=== PATIENT | male | born 1960 | race Caucasian/White ===

== ENCOUNTER → 2016-09-17 | Outpatient (CLI) | payer OTHER ==
[~2016-09-17] MED LIST: IOPAMIDOL (ISOVUE-300) 100 ML BTL ONE
== END ==
LOC: FIMAGING 16:06
PROVIDERS: ATTEND Physician Assistant Medical
DX: Z12.89 Encounter for screening for malignant neoplasm of other sites (principal); C61 Malignant neoplasm of prostate
CPT/HCPCS: Q9967

== ENCOUNTER → 2016-09-18 | Outpatient (CLI) | payer OTHER | LOC: FIMAGING 08:46 | PROVIDERS: ATTEND Specialist | DX: Z12.89 Encounter for screening for malignant neoplasm of other sites (principal); C61 Malignant neoplasm of prostate | CPT/HCPCS: 78306; A9503 ==

== ENCOUNTER 2016-10-24 05:56 | Inpatient (IN) | payer OTHER ==
[2016-10-24] MEDS ORDERED: LR 1,000 ML IV ONE (06:21)
[2016-10-24] MEDS ORDERED: LIDOCAINE 1% 2 ML INJ ID PRN (06:21)
--- NOTE | 2016-10-24 06:51 | PDANEPAE ---
ANE History of Present Illness presents for radical prostatectomy 2/2 prostate cancer ANE Past Medical History - Cardiovascular History Hx Hypertension: Yes Hx Arrhythmias: No Hx Chest Pain: No Hx Coronary Artery / Peripheral Vascular Disease: No Hx CHF / Valvular Disease: No Hx Palpitations: No - Pulmonary History Hx COPD: No Hx Asthma/Reactive Airway Disease: No Hx Recent Upper Respiratory Infection: No Hx Oxygen in Use at Home: No - Neurologic History Hx Cerebrovascular Accident: No Hx Seizures: No Hx Dementia: No - Endocrine History Hx Diabetes: No - Renal History Hx Renal Disorders: No - Liver History Hx Hepatic Disorders: No - Neurological & Psychiatric Hx Hx Neurological and Psychiatric Disorders: No - Cancer History Hx Cancer: Yes - Congenital Disorder History Hx Congenital Disorders: No - GI History Hx Gastrointestinal Disorders: No - Chronic Pain History Chronic Pain: No ANE Review of Systems - Exercise capacity METS (RN): 5 METS ANE Patient History - Allergies Allergies/Adverse Reactions: No Known Allergies Allergy (Unverified 10/21/16 11:41) - Home Medications Home Medications: Lisinopril/Hctz 20/12.5MG [Zestoretic/Prinzide 20/12.5MG (*)] 1 ea PO DAILY [Last Taken Unknown] Tadalafil [Cialis] 5 mg PO DAILY PRN 10/18/16 [Last Taken Unknown] - NPO status NPO Since - Liquids (Date): 10/23/16 NPO Since - Liquids (Time): 21:00 NPO Since - Solids (Date): 10/23/16 NPO Since - Solids (Time): 11:00 - Anes Hx Anes Hx: no prior problems - Smoking Hx Smoking Status: Former smoker - Alcohol Use Alcohol Use: Other (3 drinks/day) - Family Anes Hx Family Hx Anesthesia Complications: NEG ANE Labs/Vital Signs - Vital Signs Blood Pressure: 128/85 Heart Rate: 85 Respiratory Rate: 15 O2 Sat (%): 94 Height: 175.26 cm Weight: 89.811 kg ANE Physical Exam - Airway Neck exam: FROM Mallampati Score: Class 1 Mouth exam: normal dental/mouth exam - Pulmonary Pulmonary: no respiratory distress - Cardiovascular Cardiovascular: no murmur, rub, or gallop - ASA Status ASA Status: II ANE Anesthesia Plan Anesthesia Plan: general endotracheal anesthesia
[2016-10-24] MEDS ORDERED: MIDAZOLAM 2 MG/2 ML VIAL IVP ONE ×2 (06:54→07:15)
[2016-10-24] MEDS ORDERED: fentaNYL 100 MCG/2 ML INJ ONE ×5 (06:59→11:34)
[2016-10-24] MEDS ORDERED: PROPOFOL 200 MG/20 ML VIAL ONE ×2 (06:59)
[2016-10-24] MEDS ORDERED: cefOXitin SODIUM 2 GM in D5W 100 ML IV ONE (07:00)
[2016-10-24] MEDS ORDERED: MIDAZOLAM 2 MG/2 ML VIAL ONE (07:26)
--- NOTE | 2016-10-24 07:29 | PDHPUP ---
History & Physical Update H&P update statement: This history and physical update is based on an assessment of the patient which was completed after admission or registration (within 24 hours), but prior to the surgery/procedure. H&P update: H&P reviewed & patient examined, no change in patient's condition since H&P completed
[2016-10-24] MEDS ORDERED: BUPIVACAINE/EPI 0.5% 30 ML SDV ONE (08:01)
[2016-10-24] MEDS ORDERED: THROMBIN(HUM PLAS)/FIBRINOG/CA 5 ML VIAL TP ONE (09:04)
[2016-10-24] MEDS ORDERED: SUGAMMADEX SODIUM 200 MG/2 ML VIAL IVP ONE (10:25)
--- NOTE | 2016-10-24 11:24 | POSTOPPROG ---
Post Op Note Date of Operation: 10/24/16 Surgeon: Javier Loving (# [id number]) Jackhammer Splitter Operator: SOM Whiteside Anesthesia: GET(General Endotracheal) Pre-op Diagnosis: Prostate CA Post-op Diagnosis: Prostate CA Procedure: Robotic radical prostatectomy + bilateral PLND Findings: See op note Inf/Abcess present in the surg proc area at time of surgery?: No EBL: 100-500 (400 cc) Complications: None Drains: Mynor Newton (10 Flat) Specimen(s): 1. Prostate + SV's 2. Bilateral PLN packages
[2016-10-24] MEDS ORDERED: LIDOCAINE 2% JELLY 5 ML TUBE TP PRN (11:26)
[2016-10-24] MEDS ORDERED: OXYCODONE/APAP 5/325 TAB PO PRN (11:26)
[2016-10-24] MEDS ORDERED: HYDROCODONE/APAP 5/325 TAB PO PRN (11:26)
[2016-10-24] MEDS ORDERED: ALBUTEROL 3 ML DEYVIAL IH PRN (11:26)
[2016-10-24] MEDS ORDERED: ONDANSETRON 4 MG/2 ML VIAL IVP PRN ×2 (11:26)
[2016-10-24] MEDS ORDERED: LABETALOL HCL 50 MG/10 ML SYR IVP PRN (11:26)
[2016-10-24] MEDS ORDERED: LR 500 ML IV PRN (11:26)
[2016-10-24] MEDS ORDERED: PROMETHAZINE HCL 25 MG/ML INJ IVP PRN ×2 (11:26)
[2016-10-24] MEDS ORDERED: ACETAMINOPHEN 500 MG TAB PO PRN (11:26)
[2016-10-24] MEDS ORDERED: NALOXONE HCL 0.4 MG/ML INJ IVP PRN ×2 (11:26)
--- NOTE | 2016-10-24 11:26 | POSTANESTH ---
Post Anesthetic Evaluation Cardiovascular Status: Normal, Stable Respiratory Status: Normal, Stable Level of Consciousness/Mental Status: Can Participate in Eval Pain Control: Adequate, Prn Tx Ordered Nausea/Vomiting Control: Adequate, Prn Tx Ordered Complications Possibly Related to Anesthesia: None Noted
[2016-10-24] MEDS: fentaNYL 100 MCG/2 ML INJ IVP PRN ×2 (11:39→11:47)
[2016-10-24] MEDS ORDERED: HYDROmorphONE/DILAUDID 1 MG/ML SYR ONE (12:00)
[2016-10-24] MEDS: HYDROmorphONE/DILAUDID 1 MG/ML SYR IVP PRN ×3 (12:02→12:22)
[2016-10-24 12:16] LABS: % IMMATURE GRANULYOCYTES 0.8 % (0.0-1.1); ABSOLUTE IMMATURE GRANULOCYTES 0.16 10^3/uL (0.00-0.10); ADD DIFF? NO; ADD MORPH? NO; ADD SCAN? NO; ATYPICAL LYMPHOCYTE FLAG 0 (0-99); FRAGMENT RBC FLAG 0 (0-99); HEMATOCRIT 41.1 % (40.0-51.0); HEMOGLOBIN 14.4 g/dL (13.7-17.5); LEFT SHIFT FLG 10 (0-99); LIPEMIA HEMOLYSIS FLAG 90 (0-99); MEAN CELL HEMOGLOBIN 31.8 pg (27.9-34.1); MEAN CELL VOLUME 90.7 fL (81.5-99.8); MEAN PLATELET VOLUME 10.6 fL (8.7-11.7); PLATELET CLUMPS FLAG 0 (0-99); PLATELET COUNT 249 10^3/uL (150-400); RED BLOOD CELL COUNT 4.53 10^6/uL (4.40-6.38); RED CELL DISTRIBUTION WIDTH 11.9 % (11.5-15.2)
[2016-10-24 12:27] LABS: ANION GAP 9 mEq/L (8-16); CALCIUM 8.8 mg/dL (8.5-10.4); CARBON DIOXIDE 23 mEq/l (22-31); CHLORIDE 104 mEq/L (97-110); GLOMERULAR FILTRATION RATE > 60; GLUCOSE 156 mg/dL (70-100); POTASSIUM 4.3 mEq/L (3.5-5.2); SODIUM 136 mEq/L (134-144)
[2016-10-24] MEDS: HYDROmorphONE/DILAUDID 6 MG/30 ML PCA IV PRN (14:42)
[2016-10-24] MEDS: D5W 1/2 NS 1,000 ML IV SCH ×2 (14:43→22:40)
[2016-10-24] MEDS: cefOXitin SODIUM 2 GM in D5W 100 ML IV SCH ×2 (16:20→22:40)
--- NOTE | 2016-10-24 19:19 | GOP ---
[f rep st] OPERATIVE REPORT DATE OF OPERATION: 10/24/2016 SURGEON: Javier Loving MD OTHER SPATIAL SCIENTIST: Keri Murray CFA. ANESTHESIA: General endotracheal. PREOPERATIVE DIAGNOSIS: Prostate adenocarcinoma. POSTOPERATIVE DIAGNOSIS: Prostate adenocarcinoma. PROCEDURE PERFORMED: Robotically-assisted laparoscopic prostatectomy and bilateral pelvic lymphadenectomy. FINDINGS: Grossly organ-confined prostate cancer with no evidence of metastases. SPECIMENS: 1. Prostate with seminal vesicles. 1. Bilateral pelvic lymph node packages. 2. ESTIMATED BLOOD LOSS: Approximately 400 cc. INDICATIONS: This gentleman was recently diagnosed with a clinically-localized prostate adenocarcinoma. He is here to undergo definitive surgical therapy. The indications for the procedures, as well as potential risks and complications , were discussed with the patient preoperatively. He appeared to understand, his questions were answered, and he wished to proceed. Written informed surgical consent was thereafter obtained. DESCRIPTION OF PROCEDURE: The patient was brought to the operating room and administered general endotracheal anesthesia. He was carefully placed in low lithotomy position with Volodymyr stirrups. The genital area and abdomen were sterilely prepped and draped in standard fashion utilizing Ioban. A 20-Yi Lockhart catheter was placed sterilely on the field to gravity drainage. An orogastric tube was placed by Anesthesia and removed at the conclusion of the case. Intraabdominal access was obtained in the midline just above the umbilicus with a Veress needle. The abdomen was insufflated to 15 mmHg, which was the pressure maintained throughout a majority of the case. A 12 mm laparoscopic port was placed in this location, and proper intraabdominal access was confirmed with a robotic camera. I then marked out my remaining ports sites , which were as follows: An 8 mm robotic port in the left lower quadrant approximately 2.5 cm below the umbilicus and 12 cm lateral to the midline, an 8 mm robotic port in the right lower quadrant 2.5 cm below the midline and 7.5 cm laterally, a 3rd 8 mm robotic port placed approximately 8 cm lateral to the right lower quadrant port and nearly in the same transverse line as the umbilicus, and a 12 mm under water assistant port was placed in the left upper quadrant along the lateral edge of the rectus muscle. All these ports were placed under direct vision without complication. The robot was then docked between the patient's legs, and the appropriate arms were secured to the respective ports. This was done after the patient was placed in 27-degree Trendelenburg position. I then left the patient's bedside and entered the surgeon's robotic console. The 0-degree 12 mm robotic camera was used throughout the case. I began the procedure by carefully mobilizing some adhesions in the left lower quadrant between the small bowel and the posterior peritoneum overlying the iliac vessels. These adhesions were likely present as a result of the patient's prior orchidopexy on this side. I then identified the prerectal space in the midline. A midline transverse incision was made through the posterior peritoneum approximately 1.5 cm above the rectum with monopolar scissors. Gentle spreading motion of the posterior peritoneum was used until I was able to identify the vas deferens bilaterally. These structures were dissected free from the surrounding tissue carefully with electrocautery. The vas deferens was then transected approximately 2 cm distal to its insertion into the base of the prostate on each side. The seminal vesicles were carefully dissected free from the surrounding tissue on each side. Hem-o-garrick clips were used to ligate the vasculature at the tips of the seminal vesicles bilaterally. Once these were dissected free, an incision was made in a transverse fashion through Denonvilliers fascia just below the base of the prostate in the midline. I then used a gentle spreading motion to dissect the rectum posteriorly from the prostate anteriorly, as far towards the prostatic apex as possible. This completed the posterior dissection, which was hemostatic at this point. I then turned my attention to performing the anterior dissection. The anterior peritoneum was incised with scissors high along the anterior abdominal wall and just lateral to the obliterated umbilical ligaments. These incisions through the anterior peritoneum bilaterally were then carried back in a cephalad fashion toward the vas deferens. A gentle spreading motion was then used to develop the lateral pelvic spaces. The obliterated umbilical ligaments were transected high along the anterior abdominal wall after ligation with bipolar cautery. This allowed entrance into the space of Retzius. The bladder was then was then carefully "dropped." The endopelvic fascia was then incised lateral to the prostate on each side with this incision through the endopelvic pelvic fascia carried cephalad and caudally along the length of the prostate. The underlying levator ani muscles were carefully teased off the prostate with gentle blunt dissection. I then carefully performed the apical dissection in order to isolate the dorsal vein complex. The puboprostatic ligaments were divided with sharp scissors dissection. Two separate 0 Vicryl sutures were then used to ligate the dorsal vein complex, staying above the urethra and distal to the prostatic apex. A slipknot technique was used to secure these sutures in place. I then performed the bladder neck dissection. This was done with monopolar scissors. I carefully developed the plane between the bladder and the prostate base anteriorly. In the midline I was ultimately able to identify the previously dissected seminal vesicles and vas deferens. These were pulled up anteriorly. The posterior dissection of the prostate base from the posterior bladder was then performed with monopolar scissors. It should be mentioned that , by this point, the bladder neck had already been transected. I attempted to spare as much bladder neck tissue as possible while not compromising the margin of dissection at this location. I also was cognizant of the increased Mukesh score in the left base and performed the dissection accordingly in order to obtain a grossly adequate margin on this side. An aggressive, nerve-sparing procedure was performed on both sides. Using cold scissors dissection, I carefully dissected the neurovascular bundles bilaterally off the prostate and out of harm's way before ligating the prostate pedicles on each side. The pedicles were then ligated with a series of Hem-o-garrick clips and divided with cold scissors. The rectum was then gently and bluntly dissected posteriorly off the prostate all the way to the prostatic apex. The remaining lateral attachments between the prostate and the endopelvic fascia were then divided with scissors. The apical dissection was then completed using monopolar scissors dissection. This was done in a fashion to spare as much urethral length as possible while not compromising the apical margin. The locations of the neurovascular bundles were kept in mind and not harmed during the apical dissection. After transecting the urethra, the rectourethralis muscle was divided with scissors, and this completely freed the prostate at this point. It was then placed it in the upper abdomen to be later retrieved in a specimen bag. It should be mentioned there was no gross extraprostatic spread of cancer identified. At this point, there was some slight bleeding noted from the dorsal vein complex. Therefore, it was ligated with an additional 0 Vicryl stick tie suture successfully. The posterior plate was then reconstructed by reapproximating the rectourethralis muscle at the level of the urethral stump to the vesicovisceral fascia along the posterior bladder. This was performed with a running 3-0 Vicryl V-Loc suture. The vesicourethral anastomosis was then performed with a double-armed 3-0 Monocryl suture in a [id number] approximating fashion between the bladder neck and urethra. After the anastomosis was completed, a new 18-Yi Lockhart catheter was placed in the bladder and 20 cc of sterile fluid was placed in the balloon. The catheter irrigated manually without difficulty and any small clots were retrieved from the bladder. No significant leakage was seen from the urethrovesical anastomosis with bladder irrigation. The intraabdominal pressure was then temporarily turned down to 5 mmHg and no active bleeding was identified. I then turned my attention to performing the pelvic lymphadenectomy. I started on the left side and carefully dissected the obturator lymph node package from the surrounding tissue using the follow limits of dissection: The external iliac vein laterally, the obturator nerve posteriorly, the lateral bladder medially, the bifurcation of the common iliac vein superiorly, and Capo ligament inferiorly. The lymph node package was then carefully divided from the surrounding tissue using Hem-o-garrick clips and scissors. This was performed bilaterally without complication. There was no obvious moses metastases identified. At the conclusion of the bilateral lymphadenectomy, hemostasis was present, iliac vessels were unharmed, and the obturator nerves were intact and well defined. Evicel was then placed over the dorsal vein complex as well as in the obturator lymphadenectomy regions. The prostate was then captured in a 10 mm specimen bag and a 10 flat Mynor-Newton drain was placed across the pelvis and brought out through the left lower quadrant robotic port. This completed the robotic portion of procedure. The robot was then undocked. I then returned to the patient's bedside. The specimen bag was retrieved from the supraumbilical midline incision. The anterior rectus fascia at the site of the 12 mm under water assistant port was then reapproximated with an 0 Vicryl suture and the fascial closure device. The supraumbilical midline incision was extended slightly with scalpel and electrocautery in order to allow for delivery of the specimen within the bag. The anterior rectus fascia at this location was then reapproximated with running 0 Vicryl suture. All the wounds were irrigated and a total of 30 cc of 0.5% Marcaine with epinephrine was utilized for local anesthetic. The skin incisions were reapproximated with running 4-0 Monocryl subcuticular suture, followed by the application of Dermabond. A 2-0 silk stitch was placed around the drain to secure it to the skin. It was connected to bulb suction. A small Tegaderm was placed at the site of the drain. The patient was then awakened, extubated,transferred to his bed, then taken to the recovery room. He tolerated the procedure well overall. COMPLICATIONS: None. DISPOSITION: He was transferred to the recovery room in stable condition and will be admitted for postoperative care. /[id number]/MODL MTDD
[2016-10-25] MEDS: HYDROmorphONE/DILAUDID 6 MG/30 ML PCA IV PRN (03:40)
[2016-10-25 05:17] LABS: HEMATOCRIT 36.9 % (40.0-51.0); HEMOGLOBIN 12.9 g/dL (13.7-17.5); MEAN CELL HEMOGLOBIN 31.8 pg (27.9-34.1); MEAN CELL VOLUME 90.9 fL (81.5-99.8); RED BLOOD CELL COUNT 4.06 10^6/uL (4.40-6.38)
[2016-10-25 05:35] LABS: ANION GAP 9 mEq/L (8-16); CALCIUM 8.8 mg/dL (8.5-10.4); CARBON DIOXIDE 24 mEq/l (22-31); CHLORIDE 100 mEq/L (97-110); CREATININE 0.9 mg/dL (0.7-1.3); GLOMERULAR FILTRATION RATE > 60; GLUCOSE 106 mg/dL (70-100); POTASSIUM 3.9 mEq/L (3.5-5.2); SODIUM 133 mEq/L (134-144)
[2016-10-25] MEDS: cefOXitin SODIUM 2 GM in D5W 100 ML IV SCH ×2 (05:44→14:12)
[2016-10-25] MEDS ORDERED: HYDROmorphONE/DILAUDID 1 MG/ML SYR IVP PRN (07:55)
[2016-10-25] MEDS ORDERED: KETOROLAC 30 MG/1 ML SDV IVP ONE (07:57)
[2016-10-25] MEDS: D5W 1/2 NS 1,000 ML IV SCH ×2 (08:15→16:30)
[2016-10-25 08:18] VITALS: RESP 18
[2016-10-25] MEDS ORDERED: LISINOPRIL/HCTZ 20/12.5MG 1 EA TAB PO SCH (09:00)
--- NOTE | 2016-10-25 12:22 | SOAPPROG ---
SOAP Progress Note Assessment/Plan: Assessment: Post op prostatectomy, day 1 Plan: Patient has yet to ambulate. He is to do this soon. Will consider discharge later today. 10/25/16 12:20 Subjective: Lower abdominal discomfort- tolerable Objective: Vital Signs Temp Pulse Resp BP Pulse Ox 37.1 C 88 18 92/64 L 89 L 10/25/16 11:42 10/25/16 11:42 10/25/16 11:42 10/25/16 11:42 10/25/16 11:42 Laboratory Results 10/25/16 04:50 10/25/16 04:50 10/24/16 10/25/16 10/26/16 05:59 05:59 05:59 Intake Total 2845 Output Total 1355 Balance 1490 Physical Exam - Physical Exam General Appearance: alert, no apparent distress Neck: normal inspection Respiratory: normal breath sounds, No respiratory distress Abdomen: No non-tender (TTP on incisions. JUANITA draining red fluid. ), No distended , No rigid Skin: normal color Neuro/Psych: alert, normal mood/affect ICD10 Worksheet Patient Problems: Problems Problem Status Onset Prostate cancer Acute - ICD10 Problem Qualifiers (1) Prostate cancer
[2016-10-25] MEDS: KETOROLAC 15 MG/1 ML SDV IVP SCH ×2 (14:11→18:40)
[2016-10-25] MEDS: OXYCODONE/APAP 5/325 TAB PO PRN ×2 (14:19→18:38)
[2016-10-25 16:34] VITALS: BP 97/71; TEMP 99.6; O2SAT 92
--- NOTE | 2016-10-25 17:00 | SOAPPROG ---
SOAP Progress Note Assessment/Plan: Assessment: POD 1 s/p robotic radical prostatectomy - doing well. Plan: D/C JUANITA, discharge home w/ Lockhart. (Dict # [id number]) Subjective: No complaints. Objective: Vital Signs Temp Pulse Resp BP Pulse Ox 37.6 C 105 H 18 97/71 L 92 10/25/16 15:00 10/25/16 15:00 10/25/16 15:00 10/25/16 15:00 10/25/16 15:00 Laboratory Results 10/25/16 04:50 10/25/16 04:50 10/24/16 10/25/16 10/26/16 05:59 05:59 05:59 Intake Total 2845 Output Total 1355 425 Balance 1490 -425 Physical Exam - Physical Exam General Appearance: WD/WN, alert, no apparent distress Abdomen: soft, other (incisions c/d/i) Male Genitalia: other (urine clear via Lockhart) Skin: warm/dry Extremities: non-tender, normal inspection Neuro/Psych: alert, normal mood/affect, oriented x 3 ICD10 Worksheet Patient Problems: Problems Problem Status Onset Prostate cancer Acute
[2016-10-25 18:04] VITALS: PULSE 88
--- NOTE | 2016-10-25 21:42 | GDS ---
[f rep st] DISCHARGE SUMMARY ADMIT DIAGNOSIS: Prostate cancer. DISCHARGE DIAGNOSIS: Prostate cancer. PROCEDURES: Robotically-assisted laparoscopic radical prostatectomy and bilateral pelvic lymphadene ctomy on 10/24/2016. HOSPITAL COURSE: Refer to the operative report for details regarding the procedure. Postoperativel y, the patient did well. He was started on a clear liquid diet on the evening of surgery and advanc ed to a regular diet by the morning of postoperative day 1. He was ambulating later in the morning of postoperative day 1. Pain was under control with no oral narcotics by that time, as well. His v ital signs were stable, and he was afebrile. Postoperative laboratory work was stable. His incisio ns were clean, dry, and intact. Mynor-Newton drainage was minimal and a serum creatinine on this d rainage was also consistent with serum. The patient was ready for discharge on the evening of posto perative day 1. He is being discharged with his Lockhart catheter and routine instructions. He will c ontinue his regular medications, as well as oxycodone p.r.n. pain and Cipro 500 mg b.i.d. to begin t he weekend prior to catheter removal. Activity restriction instructions have been provided. Johnny goins return to my office on 11/04/2016 for Lockhart removal. Pathology results are pending at this time. /[id number]/MODL
== END 2016-10-25 19:19 | disposition home or self-care (01) | DRG 708 ==
LOC: F1N 05:56 → F3E 13:00
PROVIDERS: ADMIT Specialist; ATTEND Specialist
PROC: 07BC4ZX Excision of Pelvis Lymphatic, Percutaneous Endoscopic Approach, Diagnostic (ICD-10-PCS; principal; 2016-10-24 07:15)
PROC: 8E0W4CZ Robotic Assisted Procedure of Trunk Region, Percutaneous Endoscopic Approach (ICD-10-PCS; principal; 2016-10-24 07:15)
PROC: 0VT04ZZ Resection of Prostate, Percutaneous Endoscopic Approach (ICD-10-PCS; principal; 2016-10-24 07:15)
DX: C61 Malignant neoplasm of prostate (principal); I10 Essential (primary) hypertension
CPT/HCPCS: J0694; J1170; J1885; J2250; J2704; J3010

== ENCOUNTER → 2018-09-01 | Outpatient (CLI) | payer OTHER | LOC: FIMAGING 09:07 | PROVIDERS: ATTEND Radiology Radiation Oncology | DX: C61 Malignant neoplasm of prostate (principal) | CPT/HCPCS: 72074; 78306; A9503 ==